=== PATIENT | male | born 2000 | race Caucasian/White ===

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

== ENCOUNTER → 2020-03-24 | Outpatient (CLI) | payer BC ==
[~2020-03-24] MED LIST changes: +GADOBUTROL 7.5 MMOL/7.5 ML (GADAVIST) VIAL IV ONE; +HYDR-4226 PO; -HYDR-757 PO; +IOHEXOL 300 MG/ML 50 ML (OMNIPAQUE 300) VIAL IV ONE
--- NOTE | 2020-03-24 10:40 | Diagnostic Imaging Report ---
EXAMINATION: Right shoulder arthrogram. INDICATION: Shoulder pain. DETAILS OF THE PROCEDURE: Following aseptic preparation of the skin and administration of local anesthesia, a 19-gauge needle was advanced into the glenohumeral space. Approximately 14 cc of a mixture of sodium chloride, Omnipaque 240, and Gadovist was infused. There did seem to be some extension of the radiotracer into the subacromial bursa. The patient tolerated the procedure well and was dismissed in good condition. IMPRESSION: There has been a successful injection of the right glenohumeral joint. MRI is pending for further study. Dictated by: Dictated on workstation # [id number]
--- NOTE | 2020-03-24 11:32 | Diagnostic Imaging Report ---
PROCEDURE: MRI right joint upper extremity without contrast. TECHNIQUE: Multiplanar, multisequence non contrast-enhanced MRI of the right upper extremity was accomplished. INDICATION: Injury, shoulder pain. FINDINGS: The previous MRI right shoulder exam performed on 07/27/2017 noted a small tear at the superior posterior glenoid labrum. Reportedly, in the interval since the prior exam, that tear has been repaired. On the axial images of this exam, there is now a 9 x 9 mm collection of contrast in the soft tissues along the posterior aspect of the previously noted labral tear. I suspect that this is related to a recurrent tear of the labrum. There is also irregularity of the anterior most insertion of the superior labrum and I suspect that this represents a tear as well. The labrum is otherwise intact. The prior study also suggested a low-grade partial-thickness intrasubstance tear of the cranial fibers of the subscapularis tendon. That finding is again evident on this study does not seem to have changed significantly. For the most part, the rotator cuff appears to be intact and the supraspinatus muscle is not retracted or bunched. There is mild hypertrophy of the acromioclavicular joint and this does result in slight narrowing of the outlet for the supraspinatus muscle. The biceps tendon and the subscapularis tendon are intact. There is no abnormal signal arising from the osseous structures to suggest bone edema or fracture. There is a new 1.0 x 1.4 cm area of increased signal along the posterior aspect of the greater tuberosity on the T2 fat saturated series. This finding is of uncertain etiology but is more likely due to degenerative or post traumatic changes than to an acute injury. IMPRESSION: 1. The accumulation of the contrast in the soft tissues along the anterior and posterior aspects of the superior labrum does suggest that these portions of the labrum are torn. 2. The intrasubstance tear of the rotator cuff seen previously is again evident and does not appear to progressed. There is no sign of a full-thickness tear and the supraspinatus muscle is not retracted or bunched. 3. There is no acute bony abnormality identified. The newly developed area of altered signal along the posterior aspect of the greater tuberosity is of uncertain etiology but may be a sequela of prior trauma or of degenerative disease. Dictated by: Dictated on workstation # [id number]
== END ==
LOC: RAD 10:00
PROVIDERS: ATTEND Orthopaedic Surgery Sports Medicine
DX: S46.011A Strain of muscle(s) and tendon(s) of the rotator cuff of right shoulder, initial encounter (principal)
CPT/HCPCS: 23350; 73040; 73221

== ENCOUNTER → 2022-12-08 | Outpatient (CLI) | payer BC ==
[~2022-12-08] MED LIST changes: -GADOBUTROL 7.5 MMOL/7.5 ML (GADAVIST) VIAL IV ONE; -IOHEXOL 300 MG/ML 50 ML (OMNIPAQUE 300) VIAL IV ONE
--- NOTE | 2022-12-08 14:06 | Diagnostic Imaging Report ---
INDICATION: Right rib pain after injury. EXAMINATION: Right rib series 11/28/2022 FINDINGS: 5 views of the right ribs and chest. There are no displaced rib fractures. Lungs and pleural spaces clear. No infiltrates, effusions or pneumothorax. Heart and pulmonary vasculature normal. IMPRESSION: No acute process appreciated. Dictated by: Dictated on workstation # [id number]
== END ==
LOC: RAD 12:44
PROVIDERS: ATTEND Registered Nurse Critical Care Medicine
DX: S20.211A Contusion of right front wall of thorax, initial encounter (principal); G43.009 Migraine without aura, not intractable, without status migrainosus; H10.9 Unspecified conjunctivitis; R10.11 Right upper quadrant pain; W21.9XXA Striking against or struck by unspecified sports equipment, initial encounter
CPT/HCPCS: 71101